=== PATIENT | male | born 1975 | race African-American/Black ===

== ENCOUNTER 2017-06-15 19:17 | Observation (INO) | payer MEDICARE, MEDICAID ==
[~2017-06-15 19:17] MED LIST: ALDACTONE 25MG25 M1 PO; APRESOLINE 10MG10 MG PO; BENADRYL25 M1 PO; CATAPRES0.3 MG PO; CEPHALEXIN500 M1 PO; CLONIDINE0.1 MG PO; COUMADIN 1MG1 MG/TAB PO; COUMADIN 5MG5 MG/TAB PO; COUMADIN 77.5 MG/TAB PO; COZAAR100 MG PO; DILANTIN 100MG100 MG PO; HYGROTON 2525 MG/TAB PO; HYZAAR 25 MG-101 TAB PO; K-DUR 2020 MEQ PO; LIPITOR 40MG TA40 MG PO; LOPRESSOR100 MG PO; LOVENOX 100100 MG/ML SQ; NO HOME MEDICATIONS; NORVASC 10MG10 MG PO; PERCOCET 325 MG1 TA2 PO; PHENYTEK300 MG PO; PRILOSEC 20MG20 MG PO; SENOKOT S 50 MG1 TAB PO
[2017-06-16] VITALS: BP 127/78; PULSE 65; TEMP 98.3
[2017-06-16 04:00] VITALS: BP 126/74; PULSE 66; TEMP 98.5
[2017-06-16 09:33] LABS: CREATININE, serum 1.62 mg/dL (0.66-1.25)
[2017-06-16 09:33] LABS: BASO # 0.1 (0.0-0.2); BASO % 0.6 % (0.0-2.0); EOS # 0.6 (0.0-0.7); EOS % 7.6 % (0-4.0); GRAN # 3.4 (1.4-6.5); GRAN % 41.9 % (42.2-75.2); HEMOGLOBIN 12.1 g/dl (13.5-18.0); LYMPH # 3.4 (1.2-3.4); LYMPH % 42.6 % (20.0-51.0); MEAN CELL VOLUME 93 fl (80.0-100.0); MEAN CORPUSCULAR HEMOGLOBIN 31 pg (27.0-31.0); MEAN CORPUSCULAR HGB CONC 33 g/dl (33.0-37.0); MEAN PLATELET VOLUME 11.6 fl (7.4-10.4); MONO # 0.6 (0.1-0.6); MONO % 7.1 % (1.7-9.3); PLATELET COUNT 273 K/mm3 (130-400); REDCELL DISTRIBUTION WIDTH-CV 14.9 % (11.5-14.5)
[2017-06-16 09:35] LABS: ALBUMIN 4.4 gm/dL (3.5-5.0); TOTAL PROTEIN 8.9 gm/dL (6.4-8.2)
[2017-06-16 09:35] LABS: HEMATOCRIT 36.2 % (42.0-52.0)
[2017-06-16 10:03] VITALS: BP 133/83; PULSE 81; TEMP 97
[2017-06-16] MEDS ORDERED: SILACE150 MG/15 PO (12:45)
[2017-06-16] MEDS ORDERED: LACTULOSE10 GM/153 PO (12:45)
[2017-06-16] MEDS ORDERED: MIRALAX PA17 GM/Dose PO (12:45)
[2017-06-16] MEDS ORDERED: SENOKOT S 50 MG1 TAB PO (12:46)
[2017-06-16] MEDS ORDERED: SEROQUEL 2525 MG/TAB PO ×2 (12:46)
[2017-06-16] MEDS ORDERED: VIMPAT50 MG PO (12:46)
[2017-06-16] MEDS ORDERED: AZULFIDINE500 MG/TAB PO (12:46)
[2017-06-16] MEDS ORDERED: INDERAL40 MG PO (12:47)
[2017-06-16] MEDS ORDERED: IPRATROPIUM BROM3 M1 IH (12:47)
== END 2017-06-16 14:10 ==
LOC: SURG 19:17
PROVIDERS: Surgery
DX: K94.23 Gastrostomy malfunction (principal); Z79.01 Long term (current) use of anticoagulants; Z87.891 Personal history of nicotine dependence; Z88.8 Allergy status to other drugs, medicaments and biological substances
CPT/HCPCS: G0378; G0379; J2060

== ENCOUNTER 2018-02-06 15:07 | Emergency (ER) | payer MEDICARE, MEDICAID ==
[~2018-02-06 15:07] MED LIST changes: +AZULFIDINE500 MG/TAB PO; +INDERAL40 MG PO; +IPRATROPIUM BROM3 M1 IH; +LACTULOSE10 GM/153 PO; +MIRALAX PA17 GM/Dose PO; +SEROQUEL 2525 MG/TAB PO; +SILACE150 MG/15 PO; +VIMPAT50 MG PO
[2018-02-06 15:23] VITALS: TEMP 98.9
[2018-02-06] MEDS ORDERED: NORVASC 5MG5 MG/TAB PO (16:51)
[2018-02-06] MEDS ORDERED: ATIVAN 0.50.5 MG/TAB PEG (16:52)
[2018-02-06] MEDS ORDERED: CATAPRES-TTS 10.1 M1 TD (16:54)
[2018-02-06] MEDS ORDERED: MIRALAX PA17 GM/Dose PO (16:56)
[2018-02-06] MEDS ORDERED: ENULOSE10 GM/151 PEG (16:56)
[2018-02-06] MEDS ORDERED: NORCO 325 MG-51 TAB PO (16:57)
[2018-02-06] MEDS ORDERED: PRILOSEC 20MG20 MG PEG (16:58)
[2018-02-06] MEDS ORDERED: SEROQUEL50 MG PEG (16:59)
[2018-02-06] MEDS ORDERED: INDERAL40 MG PEG (16:59)
[2018-02-06] MEDS ORDERED: AZULFIDINE500 MG/TAB PEG (17:00)
[2018-02-06] MEDS ORDERED: SEROQUEL300 MG PO (17:00)
[2018-02-06] MEDS ORDERED: VIMPAT200 MG PO (17:01)
[2018-02-06] MEDS ORDERED: COUMADIN 77.5 MG/TAB PO (17:02)
[2018-02-06 18:51] VITALS: PULSE 90
[2018-02-06 18:56] VITALS: BP 170/124
== END 2018-02-06 18:57 ==
LOC: COL.ER 15:07
DX: K94.23 Gastrostomy malfunction (principal); Z79.01 Long term (current) use of anticoagulants
CPT/HCPCS: J2704

== ENCOUNTER 2019-02-04 17:54 | Emergency (ER) | payer MEDICARE, MEDICAID ==
[~2019-02-04] VITALS: Ht 182.9 cm; Wt 81.8 kg
[~2019-02-04 17:54] MED LIST changes: +ATIVAN 0.50.5 MG/TAB PEG; +AZULFIDINE500 MG/TAB PEG; +CATAPRES-TTS 10.1 M1 TD; +ENULOSE10 GM/151 PEG; +INDERAL40 MG PEG; +NORCO 325 MG-51 TAB PO; +NORVASC 5MG5 MG/TAB PO; +PRILOSEC 20MG20 MG PEG; +SEROQUEL300 MG PO; +SEROQUEL50 MG PEG; +VIMPAT200 MG PO
[2019-02-04 18:09] VITALS: TEMP 97.3
[2019-02-04 20:43] VITALS: BP 127/78; PULSE 68
== END 2019-02-04 20:44 | disposition home or self-care (01) ==
LOC: COL.ER 17:54
DX: K94.23 Gastrostomy malfunction (principal); Z79.01 Long term (current) use of anticoagulants

== ENCOUNTER 2019-02-28 22:40 | Inpatient (IN) | payer MEDICARE, MEDICAID ==
[~2019-02-28] VITALS: Ht 182.9 cm; Wt 80.7 kg
[~2019-02-28 22:40] MED LIST changes: +COUMADIN 77.5 MG/TAB PEG; +NORCO 325 MG-51 TAB PEG; -NORCO 325 MG-51 TAB PO; +NORVASC 5MG5 MG/TAB PEG; -NORVASC 5MG5 MG/TAB PO; +SEROQUEL 200MG200 MG PEG; -SEROQUEL300 MG PO; +VIMPAT200 MG PEG; -VIMPAT200 MG PO
[2019-02-28] MEDS ORDERED: LAMICTAL 25MG T25 MG PEG (23:06)
[2019-02-28] MEDS ORDERED: TYLENOL 325MG325 MG PEG (23:11)
[2019-02-28] MEDS ORDERED: ATROPINE SULFATE (23:14)
[2019-02-28] MEDS ORDERED: ATIVAN 1MG T1 MG/TAB PEG (23:15)
[2019-02-28] MEDS ORDERED: MIRALAX PA17 GM/Dose PEG (23:16)
[2019-02-28 23:33] VITALS: BP 102/76; PULSE 110; TEMP 98.6
[2019-02-28] MEDS ORDERED: NORCO 325 MG-51 TAB PEG (23:35)
[2019-02-28 23:41] VITALS: BP 117/64; PULSE 111; TEMP 98.6
[2019-02-28] MEDS ORDERED: VIIBRYD20 MG PEG (23:42)
[2019-02-28] MEDS ORDERED: COUMADIN 5MG5 MG/TAB PEG (23:44)
--- NOTE | 2019-03-01 00:06 | NUR ---
Pt. arrived to the floor via EMS at 2230. Pt. is alert and unable to communicate. Pt. provided with pericare and clean linens upon arrival. Assessment complete. Admission completed per H&P from [facility].
[2019-03-01 03:42] VITALS: BP 143/73; PULSE 103; TEMP 98.7
[2019-03-01 07:05] VITALS: BP 134/73; PULSE 109; TEMP 98.8
[2019-03-01 07:49] LABS: BASO % 0.3 % (0.0-2.0); EOS % 0.2 % (0-4.0); GRAN # 7.4 (1.4-6.5); GRAN % 70.3 % (42.2-75.2); LYMPH # 2.3 (1.2-3.4); LYMPH % 22.1 % (20.0-51.0); MEAN CELL VOLUME 99 fl (80.0-100.0); MEAN CORPUSCULAR HEMOGLOBIN 33 pg (27.0-31.0); MEAN CORPUSCULAR HGB CONC 33 g/dl (33.0-37.0); MEAN PLATELET VOLUME 11.3 fl (7.4-10.4); MONO # 0.7 (0.1-0.6); MONO % 6.6 % (1.7-9.3); PLATELET COUNT 274 K/mm3 (130-400); RED BLOOD COUNT 3.38 M/mm3 (4.20-5.60); REDCELL DISTRIBUTION WIDTH-CV 14.3 % (11.5-14.5)
[2019-03-01 07:50] LABS: HEMATOCRIT 33.4 % (42.0-52.0)
[2019-03-01 07:54] LABS: PROTHROMBIN TIME 23.5 SECONDS (9.7-12.8)
[2019-03-01 08:00] LABS: ALBUMIN 3.8 gm/dL (3.5-5.0); BILIRUBIN,TOTAL 0.5 mg/dL (0.0-1.0); CALCIUM 9.4 mg/dL (8.4-10.2); CREATININE, serum 1.91 (0.66-1.25); POTASSIUM 4.1 mmol/L (3.4-5.0); TOTAL PROTEIN 8.3 gm/dL (6.4-8.2)
[2019-03-01 12:13] VITALS: BP 88/41; PULSE 89; TEMP 98.5
[2019-03-01 16:55] VITALS: BP 114/64; PULSE 87; TEMP 98.6
[2019-03-01] MEDS ORDERED: ABH CREAM TOP (17:00)
[2019-03-01] MEDS ORDERED: NORVASC 10MG10 MG PO (17:01)
[2019-03-01] MEDS ORDERED: IPRATROPIUM BROM3 M1 IH (17:02)
[2019-03-01] MEDS ORDERED: SENNA-LAX8.6 MG PEG (17:05)
[2019-03-01 19:45] VITALS: BP 131/70; PULSE 88; TEMP 98.5
--- NOTE | 2019-03-01 21:00 | NUR ---
Patient sitting up in bed, looks into hallway and attempts to communicate. Is able to move left hand, speech is incoherent. Has a contractured right arm/hand. Minimal movement of both legs. Has a PEG tube which is clamped, patient receiving medications throught this. Has not had any vomiting this shift, remains NPO including no feedings per PEG tube. IV to left hand, fluids infusing without redness or swelling. Patient is incontinent of bowel and bladder. Bedrails are padded with blankets for seizure precautions.
[2019-03-01 23:43] VITALS: BP 115/53; PULSE 71; TEMP 97.8
[2019-03-02] VITALS (8 sets, daily range): BP systolic 115–174; BP diastolic 52–84; PULSE 58–74; TEMP 97.1–98.5
--- NOTE | 2019-03-02 05:30 | NUR ---
Has remained NPO since midnight. Has slept well, incontinent of urine this shift, milly cares provided.
--- NOTE | 2019-03-02 07:20 | NUR ---
bedside shift report received from CINTIA Buitrago
--- NOTE | 2019-03-02 09:15 | NUR ---
in bed and moves about and mumbles but is incomprehensible speech, was incontinent of large amount of urine and also bowel, care provided, full assessment completed, see interventions for further info, Dr Ford and care team in to see patient, have not assessed any nausea or emesis, all am meds given per PEG tube
--- NOTE | 2019-03-02 10:30 | NUR ---
appears to be sleeping, in bed with lights off, eyes closed, resp quiet and easy
--- NOTE | 2019-03-02 13:30 | NUR ---
brother and family in to see patient, he is awake and trying to visit with them
--- NOTE | 2019-03-02 15:02 | NUR ---
was incontinent of urine and large loose solorio colored bowel movement, care provided, to endo per bed
--- NOTE | 2019-03-02 16:00 | NUR ---
returned to room from endoscopy per bed, awake and alert, assessment unchanged
--- NOTE | 2019-03-02 17:05 | NUR ---
in bed and appears to be upset, pointing but unable to understand, however I think he wants water, given moistened swab stick and appeared this is what he wanted
--- NOTE | 2019-03-02 17:20 | NUR ---
bed alarm sounding, entered room and patient sitting up on side of bed, has pulled bedside table near him and pulling at water, then he points at tube feeding apparatus and is calling for it, explained to him the Dr does not want him to have that but unsure if he understands, assisted back into bed
--- NOTE | 2019-03-02 18:00 | NUR ---
again trying to sit up and pointing but cannot understand what he wants, assisted him with washing his face
--- NOTE | 2019-03-02 18:57 | NUR ---
bedside shift report given to CINTIA Buitrago
--- NOTE | 2019-03-02 20:30 | NUR ---
Patient awake, alert, aphasic. HS meds given per PEG tube including 160cc of water for flush. IVF infusing to left hand without redness or swelling. Is incontinent of bowel and bladder. Right hand contractured, minimal movement of legs. Smiles and nods head when explaining meds given. Repositioned in bed with 2 assist.
[2019-03-03 00:29] VITALS: BP 161/85; PULSE 68; TEMP 96.3
[2019-03-03 04:32] VITALS: BP 152/88; PULSE 66; TEMP 96.3
--- NOTE | 2019-03-03 05:01 | NUR ---
Incontinent of bowel and bladder. Is alert, aphasic. Nods head yes/no when asked questions. Resistive with milly cares and turning. IV site to left hand remains patent.
--- NOTE | 2019-03-03 06:41 | NUR ---
Has had no vomiting this shift.
[2019-03-03 07:58] VITALS: BP 165/84; PULSE 58; TEMP 96.2
--- NOTE | 2019-03-03 08:00 | NUR ---
PATIENT IS RESTING IN BED. PATIENT IS ALERT AND RESPONDS TO NAME. PATIENT I APHASIC. WEAKNESS AND LIMB CONTRACTURES NOTED. VSS. UPPER LUNG LOBES COARSE UPON AUSCULTATION. LUNG BASES DIMINISHED BILATERALLY. ABDOMEN IS SOFT, ROUND, WITH ACTIVE BOWEL SOUNDS ALL FOUR QUADRANTS. PEG TUBE TO LEFT-SIDE OF ABDOMEN CLAMPED. LEFT HAND IV INFUSING VIA PUMP. CALL LIGHT WITHIN REACH. NO OTHER NEEDS AT THIS TIME.
[2019-03-03 09:13] LABS: BASO % 0.6 % (0.0-2.0); EOS # 0.2 (0.0-0.7); EOS % 4.4 % (0-4.0); GRAN # 2.1 (1.4-6.5); GRAN % 39.3 % (42.2-75.2); HEMOGLOBIN 12.1 g/dl (13.5-18.0); LYMPH # 2.4 (1.2-3.4); LYMPH % 45.5 % (20.0-51.0); MEAN CELL VOLUME 98 fl (80.0-100.0); MEAN CORPUSCULAR HEMOGLOBIN 32 pg (27.0-31.0); MEAN CORPUSCULAR HGB CONC 33 g/dl (33.0-37.0); MEAN PLATELET VOLUME 10.5 fl (7.4-10.4); MONO # 0.5 (0.1-0.6); PLATELET COUNT 237 K/mm3 (130-400); RED BLOOD COUNT 3.77 M/mm3 (4.20-5.60); REDCELL DISTRIBUTION WIDTH-CV 13.4 % (11.5-14.5)
[2019-03-03 09:21] LABS: CALCIUM 10.1 mg/dL (8.4-10.2); CREATININE, serum 1.4 (0.66-1.25); POTASSIUM 4.2 mmol/L (3.4-5.0)
--- NOTE | 2019-03-03 10:04 | NUR ---
SHAVON attended clinical rounds. Patient has been cleared to discharge back to [facility] today. SHAVON contacted [place] about discharge. Initially they report they do not have transportation all day but they would most likely be able to pick him up tonight. SHAVON then spoke to the water taxi ferry operator, Barbara, and she would like "proof" that patient is medically stable before they will accept him back. Barbara also said that if they accept him back and he is not "medically stable," they will "just send him back." SHAVON reported that she can have the PA or Doctor contact her to explain that he is medically stable. SHAVON reported that if they do not have transportation service today, we can discharge the patient via EMS but SHAVON is unsure if it will be covered by insurance because a ambualnce ride is not medically nessesary. Barbara reports "we are not paying for that." SHAVON informed patient's nurse, charge nurse and lead warehouse associate of this.
[2019-03-03 11:51] VITALS: BP 122/71; PULSE 54
--- NOTE | 2019-03-03 12:41 | NUR ---
SHAVON spoke with hospitalist VIKY about patient possibly discharging. She reports that they would like to see how patient does with tube feedings before we discharge him. Patient will discharge tomoorrow. [facility]
--- NOTE | 2019-03-03 12:50 | NUR ---
PATIENT RECEIVED JEVITY TUBE FEED PER ORDERS. TUBE FLUSHED WITH 30 MLS OF WATER BEFORE AND AFTER TUBE FEED, IN ADDITION TO AFTER AFTER MEDICATION ADMINISTRATION. WILL CONTINUE TO MONITOR.
--- NOTE | 2019-03-03 13:04 | NUR ---
SW contacted patient's with an update. SHAVON reported that we plan to discharge patient back to [facility] tomorrow 03/04. SW review IM with vis phone. She verbalized understanding. SW offered to provide a copy but she did not want one.
--- NOTE | 2019-03-03 16:00 | NUR ---
60 MLS OF RESIDUAL TUBE FEED. PATIENT'S PEG TUBE FLUSHED WITH 30 MLS OF WATER, GIVEN PEG TUBE FEEDING, FLUSHED WITH 30 MLS OF WATER, MEDICATION GIVEN, FLUSHED WITH 30 MLS OF WATER. PATIENT TOLERATED WELL.
[2019-03-03 17:44] VITALS: BP 145/74; PULSE 74; TEMP 98.2
--- NOTE | 2019-03-03 18:10 | NUR ---
NO RESIDUAL DRAWN FROM PATIENT'S PEG TUBE. PEG FLUSHED WITH 30 MLS PRIOR AND AFTER TUBE FEED. PATIENT TOLERATED WELL.
--- NOTE | 2019-03-03 18:45 | NUR ---
REPORT GIVEN TO CINTIA BURRELL.
--- NOTE | 2019-03-03 20:00 | NUR ---
Patient restless, aphasic and trying to communicate with grunting. Checked residual from PEG tube, >160cc. Administered medications only at this time and will recheck residual at 2200. Patient repositioned in bed, inc. of urine only and milly care provided.
--- NOTE | 2019-03-03 22:00 | NUR ---
Residual from PEG tube 0. Jevity 1.5 (1) can given per gravity bolus at this time, patient tolerated well.
[2019-03-03 22:02] VITALS: BP 136/70; PULSE 73; TEMP 98
--- NOTE | 2019-03-04 02:00 | NUR ---
Patient incontinent of bowel and bladder, milly cares given and repositioned in bed.
[2019-03-04 05:19] VITALS: BP 159/92; PULSE 68; TEMP 98.1
--- NOTE | 2019-03-04 05:53 | NUR ---
Tolerates tube feeding without vomiting. Lab work obtained at this time.
[2019-03-04 06:29] LABS: BASO % 0.4 % (0.0-2.0); EOS # 0.2 (0.0-0.7); EOS % 2.2 % (0-4.0); GRAN # 3.4 (1.4-6.5); GRAN % 50.1 % (42.2-75.2); HEMOGLOBIN 12.1 g/dl (13.5-18.0); LYMPH # 2.6 (1.2-3.4); LYMPH % 38.9 % (20.0-51.0); MEAN CELL VOLUME 99 fl (80.0-100.0); MEAN CORPUSCULAR HEMOGLOBIN 33 pg (27.0-31.0); MEAN CORPUSCULAR HGB CONC 33 g/dl (33.0-37.0); MEAN PLATELET VOLUME 10.9 fl (7.4-10.4); MONO # 0.6 (0.1-0.6); MONO % 8.3 % (1.7-9.3); PLATELET COUNT 255 K/mm3 (130-400); RED BLOOD COUNT 3.72 M/mm3 (4.20-5.60); REDCELL DISTRIBUTION WIDTH-CV 13.3 % (11.5-14.5)
[2019-03-04 06:30] LABS: HEMATOCRIT 36.8 % (42.0-52.0)
[2019-03-04 06:38] LABS: BILIRUBIN,TOTAL 0.4 mg/dL (0.0-1.0); CALCIUM 9.9 mg/dL (8.4-10.2); CREATININE, serum 1.66 (0.66-1.25); POTASSIUM 4.1 mmol/L (3.4-5.0)
[2019-03-04 07:31] VITALS: BP 147/81; PULSE 72; TEMP 98.6
--- NOTE | 2019-03-04 08:00 | NUR ---
PATIENT IS RESTING IN BED. PATIENT IS ALERT AND RESPONDS TO NAME. PATIENT IS APHASIC. WEAKNESS AND LIMB CONTRACTURES NOTED. VSS. ALL LUNG LOBES CLEAR UPON AUSCULTATION. GRUNTING SOUNDS IN UPPER AIRWAY PRESENT. ABDOMEN IS SOFT, ROUND, WITH ACTIVE BOWEL SOUNDS ALL FOUR QUADRANTS. PEG TUBE TO LEFT-SIDE OF ABDOMEN CLAMPED. LEFT HAND TO INT. CALL LIGHT WITHIN REACH. NO OTHER NEEDS AT THIS TIME.
[2019-03-04] MEDS ORDERED: LEVAQUIN 750MG750 M1 PO (08:59)
[2019-03-04] MEDS ORDERED: AMOXICILLIN 50500 MG PO (09:00)
[2019-03-04] MEDS ORDERED: PROTONIX40 MG/Pack PO ×2 (09:06)
--- NOTE | 2019-03-04 09:50 | NUR ---
NO RESIDUAL ASPIRATED FROM PATIENT'S PEG TUBE. FLUSHED WITH 30 MLS OF FREE WATER BEFORE AND AFTER FEEDING AND MEDICATIONS. MEDICATIONS MIXED WITH 60 MLS OF WATER. PATIENT TOLERATED TUBE FEEDING WITHOUT ANY DIFFICULTIES.
--- NOTE | 2019-03-04 11:32 | NUR ---
On Thursday 03/01, SHAVON spoke with patient's about discharge planning. Patient's reported that patient is from [facility] and patient will return there when he is discharged. SHAVON completed choice form and faxed updates to [facility]. Patient's PCP is Dr Keeley Preston and all medications are provided by [facility]. Patient is wheelchair bound. Patient does not currently get any therapies at the longterm.
--- NOTE | 2019-03-04 11:44 | NUR ---
SW attended clinical rounds. Patient will discharge back to [facility] 03/04. SW faxed discharge orders and will arrange transportation.
[2019-03-04] MEDS ORDERED: PRILOTC PEG (11:50)
[2019-03-04 12:16] VITALS: BP 120/68; PULSE 74; TEMP 98.6
--- NOTE | 2019-03-04 13:10 | NUR ---
NO RESIDUAL ASPIRATED FROM PATIENT'S PEG TUBE. PATIENT'S PEG TUBE FLUSHED WITH 30 MLS OF FREE WATER BEFORE AND AFTER JEVITY BOLUS FEED, AND AFTER MEDICATION ADMINISTRATION. PATIENT TOLERATED WELL.
[2019-03-04 13:50] VITALS: BP 120/68; PULSE 74; TEMP 98.6
--- NOTE | 2019-03-04 15:05 | NUR ---
REPORT CALLED TO CINTIA LEE AT [facility].
--- NOTE | 2019-03-04 16:30 | NUR ---
NO RESIDUAL ASPIRATED FROM PEG TUBE. PEG TUBE FLUSHED WITH 30 MLS OF FREE WATER PRIOR TO AND AFTER JEVITY BOLUS FEED AND MEDICATION ADMINITRATION. PATIENT TOLERATED WELL.
[2019-03-04 16:59] VITALS: BP 142/77; PULSE 74; TEMP 98.6
--- NOTE | 2019-03-10 08:44 | NUR ---
pantry worker contacted Kinsey, social worker clinical at [facility], and advised that patient's durable power of employment law attorney for health care is not legal as patient did not sign it, rather his did. Worker advised that patient is the only one that can sign the document and he will need to be alert and oriented to understand the contents of the document. Kinsey stated patient was alert and oriented and she would assist patient in completing another document. Worker notified hosptial risk management and medical records of the above information.
== END 2019-03-04 17:37 | DRG 392 ==
LOC: SURG 22:40
PROVIDERS: Internal Medicine Gastroenterology; Nurse Practitioner; Physician Assistant; ADMIT Student in an Organized Health Care Education/Training Program
PROC: 0DJ08ZZ Inspection of Upper Intestinal Tract, Via Natural or Artificial Opening Endoscopic (ICD-10-PCS; principal; 2019-03-02 16:00)
DX: R11.2 Nausea with vomiting, unspecified (principal); A04.8 Other specified bacterial intestinal infections; I42.9 Cardiomyopathy, unspecified; N18.4 Chronic kidney disease, stage 4 (severe); R47.01 Aphasia; I12.9 Hypertensive chronic kidney disease with stage 1 through stage 4 chronic kidney disease, or unspecified chronic kidney disease; R74.0 Nonspecific elevation of levels of transaminase and lactic acid dehydrogenase [LDH]; K57.30 Diverticulosis of large intestine without perforation or abscess without bleeding; K21.0 Gastro-esophageal reflux disease with esophagitis; K44.9 Diaphragmatic hernia without obstruction or gangrene; J45.909 Unspecified asthma, uncomplicated; G47.33 Obstructive sleep apnea (adult) (pediatric); T36.3X5A Adverse effect of macrolides, initial encounter; T42.75XA Adverse effect of unspecified antiepileptic and sedative-hypnotic drugs, initial encounter; Z86.73 Personal history of transient ischemic attack (TIA), and cerebral infarction without residual deficits; Z79.01 Long term (current) use of anticoagulants; Z88.8 Allergy status to other drugs, medicaments and biological substances; Z88.6 Allergy status to analgesic agent; Z87.01 Personal history of pneumonia (recurrent); Z93.1 Gastrostomy status; B96.81 Helicobacter pylori [H. pylori] as the cause of diseases classified elsewhere
CPT/HCPCS: 99222-AI; 99232-AI; 99233-AI; 99239; C9113; J2550; J2704; J7030

== ENCOUNTER → 2019-03-10 | Outpatient (CLI) | payer MEDICARE, MEDICAID ==
[~2019-03-10] MED LIST changes: +ABH CREAM TOP; +AMOXICILLIN 50500 MG PO; +ATIVAN 1MG T1 MG/TAB PEG; +ATROPINE SULFATE; +COUMADIN 5MG5 MG/TAB PEG; +LAMICTAL 25MG T25 MG PEG; +LEVAQUIN 750MG750 M1 PO; +MIRALAX PA17 GM/Dose PEG; +PRILOTC PEG; +PROTONIX40 MG/Pack PO; +SENNA-LAX8.6 MG PEG; -SEROQUEL 200MG200 MG PEG; +SEROQUEL300 MG PEG; +TYLENOL 325MG325 MG PEG; +VIIBRYD20 MG PEG
== END ==
LOC: COL.RAD 03-09 07:30
DX: K51.90 Ulcerative colitis, unspecified, without complications (principal); N26.9 Renal sclerosis, unspecified